=== PATIENT | female | born 1960 | race Hispanic/Latino ===

== ENCOUNTER 2018-06-07 22:28 | Inpatient (IN) | payer MEDICARE ==
--- NOTE | 2018-06-08 00:56 | ED PDOC ---
Syncope/Near Syncope/Dizziness Time Seen by Provider: 06/07/18 22:30 Chief Complaint (Nursing): Dizziness/Lightheaded Chief Complaint (Provider): Dizziness/Lightheaded History Per: Patient History/Exam Limitations: no limitations Onset/Duration Of Symptoms: Hrs Associated Symptoms Preceding Syncopal Episode: Vertigo Additional Complaint(s): Liat Bishop is a 58 year old female with a past medical history of a pituitary tumor, CSF result of brain surgery, blood patch, endometriosis, ENT staph infection, and chronic pain, who is presenting to the ED with complains of vertigo and dizziness onset around 9 am s/p waking up. Patient reports feeling foggy and states that she can't think properly. but no focal weakness or numbness. She denies any fevers, vomiting, or recent illnesses. Neurologist: Dr. Wang Partridge Farmer: Dr. Sloan NIHSS Stroke Scale - Date/Time Evaluation Performed Date Performed: 06/08/18 When Was NIHSS Performed: Baseline - How Severe is the Stroke Level of Consciousness: 0=Alert LOC to Questions: 0=Both comments correct LOC to commands: 0=Obeys both correctly Best Gaze: 0=Normal Visual: 0=No visual loss Facial: 0=Normal Motor Arm - Left: 0=No drift Motor Arm - Right: 0=No drift Motor Leg - Left: 0=No drift Motor Leg - Right: 0=No drift Limb Ataxia: 1=Present Upper or Lower (atxatic gait) Sensory: 0=Normal Best Language: 0=No aphasia Dysarthia: 0=Normal articulation Extinction & Inattention (Neglect): 0=Normal, no object Score: 1 Severity Of Stroke: 1-4 = Minor Stroke Past Medical History Reviewed: Historical Data, Nursing Documentation, Vital Signs Vital Signs: Last Vital Signs Temp 98.6 F 06/07/18 22:43 Pulse 92 H 06/07/18 22:43 Resp 18 06/07/18 22:43 BP 134/70 06/07/18 22:43 Pulse Ox 95 06/07/18 22:43 - Medical History PMH: Chronic Pain Other PMH: Pituitary tumor, ENT staph infection, CSF leak, endometriosis - Surgical History Other surgeries: Laparoscopy and laparotomy - Family History Family History: States: Unknown Family Hx - Social History Current smoker - smoking cessation education provided: Yes (heavy) Alcohol: Social Drugs: Denies - Home Medications Home Medications: Ambulatory Orders Medication Instructions Recorded Albuterol Sulfate [Ventolin Hfa] 2 inh INH Q6 PRN 06/08/18 Alprazolam [Xanax Xr] 1 mg PO Q6 PRN 06/08/18 Omeprazole [Omeprazole] 10 mg PO DAILY 06/08/18 oxyCODONE [oxyCODONE Immediate 15 mg PO Q6 PRN 06/08/18 Release Tab] - Allergies Allergies/Adverse Reactions: Allergies Allergy/AdvReac Type Severity Reaction Status Date / Time No Known Allergies Allergy Verified 06/07/18 22:43 Review of Systems ROS Statement: Except As Marked, All Systems Reviewed And Found Negative Constitutional: Negative for: Fever Gastrointestinal: Negative for: Vomiting Neurological: Positive for: Dizziness (vertigo), Other (foggy, can't think) Physical Exam - Reviewed Nursing Documentation Reviewed: Yes Vital Signs Reviewed: Yes - Physical Exam Appears: Positive for: Non-toxic, No Acute Distress Head Exam: Positive for: ATRAUMATIC, NORMAL INSPECTION, NORMOCEPHALIC Skin: Positive for: Normal Color, Warm, DRY Eye Exam: Positive for: EOMI, Normal appearance, PERRL ENT: Positive for: Normal ENT Inspection Neck: Positive for: Normal, Painless ROM Cardiovascular/Chest: Positive for: Regular Rate, Rhythm. Negative for: Murmur Respiratory: Positive for: Normal Breath Sounds. Negative for: Respiratory Distress Gastrointestinal/Abdominal: Positive for: Normal Exam, Soft. Negative for: Tenderness Back: Positive for: Normal Inspection. Negative for: L CVA Tenderness, R CVA Tenderness, Vertebral Tenderness Extremity: Positive for: Normal ROM. Negative for: Deformity, Swelling Neurologic/Psych: Positive for: Alert, recyclable products sorter II-XII (normal), Oriented, Gait ( ataxic). Negative for: Motor/Sensory Deficits - Laboratory Results Result Diagrams: 06/09/18 05:05 06/09/18 05:05 - ECG O2 Sat by Pulse Oximetry: 95 (RA) Medical Decision Making Medical Decision Making: Time: 23:49 Impression: Dizziness rule out vertigo, rule out intracranial process Plan: --CT head --CMP --CBC CT Head: FINDINGS: Brain: No significant white matter disease. No hemorrhage. Ventricles: Unremarkable. No ventriculomegaly. Bones/joints: Unremarkable. No acute fracture. Soft tissues: No acute findings. Vasculature: Intracranial vascular atherosclerosis. Sinuses, sella turcica: Again, sclerosis, periosteal thickening of the khan of the left sphenoid sinus, probably postsurgical. Postsurgical changes in the roof of the sphenoid sinus/ floor of the sella. Residual soft tissues in the sella turcica, smaller in size when compared to prior study.Within the left sphenoid sinus there is a soft tissue and fatty tissue, which is smaller when compared to prior study, probably postsurgical and/or residual tumor in the left sphenoid sinus. Mastoid air cells: Unremarkable as visualized. No mastoid effusion. IMPRESSION: No acute intracranial findings. Post surgical changes within the sella turcica and within the left sphenoid sinus. Overall, the postsurgical tissue has reduced in size when compared to the previous study. Clinical correlation and followup is recommended as clinically warranted. Patient states that she is feeling dizzy and requires pain medications. Antivert and Percocet ordered as it could be vertigo. 5:[address] Stack regarding admission of patient. Dr. Stack accepts patient for admission and agrees with neurology consult (placed for Dr Lozano, director of aviation) Reevaluation: patient does not see a significant improvement in symptoms after supportive care and medications. Provider called patient's neurologist Dr. Wang just to find out other info about her medical history. no answer. Scribe Attestation: Documented by Quin Flores, acting as a scribe for Bayron Pierson MD. Provider Scribe Attestation: All medical record entries made by the Scribe were at my direction and personally dictated by me. I have reviewed the chart and agree that the record accurately reflects my personal performance of the history, physical exam, medical decision making, and the department course for this patient. I have also personally directed, reviewed, and agree with the discharge instructions and disposition. Disposition - Clinical Impression Clinical Impression: Dizziness - Patient ED Disposition Is Patient to be Admitted: No Counseled Patient/Family Regarding: Studies Performed, Diagnosis, Need For Followup - Disposition Disposition: Routine/Home Disposition Time: 04:30 Condition: STABLE
[2018-06-08 03:43] LABS: BASO # 0.1 K/uL (0.0-0.2); BASO % 1.2 % (0.0-2.0); EOS # 0.3 K/uL (0.0-0.7); EOS % 4.2 % (0.0-4.0); HEMOGLOBIN 13.2 g/dL (12.0-16.0); LYMPH # 1.5 K/uL (1.0-4.3); LYMPH % 22.7 % (20.0-40.0); MEAN CELL VOLUME 98.1 fl (81.0-99.0); MEAN CORPUSCULAR HGB CONC 34.7 g/dL (33.0-37.0); MEAN PLATELET VOLUME 9.3 fl (7.2-11.7); MONO # 0.5 K/uL (0.0-0.8); MONO % 7.4 % (0.0-10.0); NEUT # 4.2 K/uL (1.8-7.0); NEUT % 64.5 % (50.0-75.0); NRBC % 0.2 % (0.0-0.0); RBC 3.88 Mil/uL (3.80-5.20); RED CELL DISTRIBUTION WIDTH 14.1 % (11.5-14.5); WHITE BLOOD COUNT 6.5 K/uL (4.8-10.8)
[2018-06-08 03:47] LABS: ALB/GLOB RATIO 1.2 (1.0-2.1); ALBUMIN 4.2 g/dL (3.5-5.0); ALT/SGPT 26 U/L (9-52); AST/SGOT 41 U/L (14-36); BLOOD UREA NITROGEN 9 mg/dl (7-17); CALCIUM 8.2 mg/dL (8.4-10.2); GFR AFRICAN-AMERICAN > 60; GFR NON-AFRICAN AMERICAN > 60
[2018-06-08] MEDS ORDERED: Oxycodone/Acetaminophen 5/325 mg Tab PO ONE (04:23)
[2018-06-08] MEDS ORDERED: Dextrose 5%/0.45% NS 1,000 ML IV SCH (08:30)
[2018-06-08] MEDS ORDERED: Sodium Chloride 0.9% 50 ML IV ONE (08:35)
[2018-06-08] MEDS ORDERED: Gadodiamide 287 MG/ML VIAL (15ML) IV ONE (08:35)
[2018-06-08] MEDS ORDERED: Pantoprazole 40 mg EC Tab PO ONE (09:46)
--- NOTE | 2018-06-08 10:11 | RAD ---
Date of service: 06/08/2018 PROCEDURE: CHEST RADIOGRAPH, 1 VIEW HISTORY: dizziness COMPARISON: 03/26/2015. FINDINGS: LUNGS: The lungs are well inflated and clear. PLEURA: No pneumothorax or pleural fluid seen. CARDIOVASCULAR: Normal. OSSEOUS STRUCTURES: No significant abnormalities. VISUALIZED UPPER ABDOMEN: Normal. OTHER FINDINGS: None. IMPRESSION: No active pulmonary disease.
[2018-06-08] MEDS: Pantoprazole 40 mg EC Tab PO SCH (10:25)
--- NOTE | 2018-06-08 11:00 | CT ---
Date of service: 06/08/2018 PROCEDURE: CT HEAD WITHOUT CONTRAST. HISTORY: Dizziness. Relevant surgical history: Multiple (3) surgeries for pituitary mass most recent performed 2010. COMPARISON: 03/26/2015 TECHNIQUE: Axial computed tomography images were obtained through the head/brain without intravenous contrast. Coronal and sagittal reconstructed images. Radiation dose: Total exam DLP = 813.79 mGy-cm. This CT exam was performed using one or more of the following dose reduction techniques: Automated exposure control, adjustment of the mA and/or kV according to patient size, and/or use of iterative reconstruction technique. FINDINGS: HEMORRHAGE: No intracranial hemorrhage. BRAIN: No mass effect or edema. No atrophy or chronic microvascular ischemic changes. VENTRICLES: Unremarkable. No hydrocephalus. CALVARIUM: Unremarkable. PARANASAL SINUSES: Unremarkable as visualized. No significant inflammatory changes. MASTOID AIR CELLS: Unremarkable as visualized. No inflammatory changes. OTHER FINDINGS: Postoperative changes within the sella and parasellar regions. Apparent decrease in size of the mass identified within the sella turcica compared to the prior study IMPRESSION: No acute intracranial abnormalities. No significant findings to account for the clinical presentation. Concordant results (preliminary interpretation) provided by [facility]. Procedure Completed: 20:16. Preliminary ([facility]) Report: Dictated and Authenticated: 01:06. Final Interpretation: 10:58.
[2018-06-08] MEDS: Sodium Chloride 0.9% 1,000 ML IV SCH ×2 (11:23→22:56)
--- NOTE | 2018-06-08 12:14 | MRI ---
Date of service: 06/08/2018 PROCEDURE: MRI BRAIN AND PITUITARY WITH AND WITHOUT CONTRAST HISTORY: dizziness, hx pituitary tumor COMPARISON: Noncontrast head CT performed earlier the same day and from 03/26/2015. MRI brain from 05/17/2012 TECHNIQUE: Multiplanar, multisequence MR images of the pituitary glad were obtained, including high resolution sagittal T2 and dynamic, multiphasic contrast coronal T1 weighted images of the sellar turcica. 6 cc Omniscan was injected intravenously. FINDINGS: PITUITARY GLAND: Intravenously. Status post transsphenoidal resection of pituitary neoplasm. The pituitary gland is small in size and has distorted morphology. No residual or recurrent mass abnormal enhancement or signal abnormality. Infundibulum midline. OPTIC CHIASM: Normal in appearance. SUPRASELLAR CISTERN: Normal. CAVERNOUS SINUSES: Normal enhancement BRAIN (LIMITED): There are mild chronic microangiopathic changes. There is no extra-axial fluid collection or territorial infarction. VENTRICLES: Unremarkable. No hydrocephalus.There is mild age-related global parenchymal volume loss and proportionate enlargement of the ventricles and cortical sulci. OTHER FINDINGS: None. IMPRESSION: Status post transsphenoidal resection of a neoplasm, there is started diminutive pituitary gland without evidence for residual or recurrent mass. Mild chronic microangiopathic changes and mild age-related global parenchymal volume loss.
--- NOTE | 2018-06-08 19:06 | CP.PCM.CON ---
History of Present Illness - History of Present Illness History of Present Illness: Neurology Consultation Note: Mrs. Bishop is a 58-year-old woman who is a patient of Dr. Wang with a past medical history of pituitary tumor (s/p transphenoidal resection), CSF leak a/p blood patch, endometriosis, ENT staph infection, and chronic pain, who presented to the ED complaining of vertigo that started Thursday morning. MRI of the brain did not show any concerning acute findings. Labs were basically normal. Vital signs were normal. The patient complains of a chronic headache and states that these episodes of vertigo occur spontaneously and last several minutes. About a week ago, the patient was witnessed having a prolonged staring episode during which her body was "frozen" and she was not responsive. This was witnessed by her who assisted with the history. Review of Systems - Review of Systems All systems: reviewed and no additional remarkable complaints except Past Patient History - Past Medical History & Family History Past Medical History?: Yes - Past Social History Smoking Status: Light Smoker < 10 Cigarettes Daily - PULMONARY Hx Respiratory Disorders: No - NEUROLOGICAL Hx Neurological Disorder: Yes (Pituitary mass with 3 surgeries, CSF leak, mild chronic meningitis) - RENAL Hx Chronic Kidney Disease: No - ENDOCRINE/METABOLIC Hx Endocrine Disorders: No - HEMATOLOGICAL/ONCOLOGICAL Hx Blood Disorders: No - INTEGUMENTARY Hx Dermatological Problems: No - MUSCULOSKELETAL/RHEUMATOLOGICAL Hx Musculoskeletal Disorders: No Hx Falls: Yes Hx Unsteady Gait: Yes - GASTROINTESTINAL Hx Gastrointestinal Disorders: No - GENITOURINARY/GYNECOLOGICAL Hx Genitourinary Disorders: Yes (endometriosis) - PSYCHIATRIC Hx Anxiety: Yes Hx Substance Use: No - SURGICAL HISTORY Hx Surgeries: Yes Other/Comment: laparotomy x4, laparoscopy x4, ectopic , 6 miscarriages - ANESTHESIA Hx Anesthesia: Yes Hx Anesthesia Reactions: No Meds Allergies/Adverse Reactions: Allergies Allergy/AdvReac Type Severity Reaction Status Date / Time No Known Allergies Allergy Verified 06/07/18 22:43 - Medications Medications: Current Medications Sodium Chloride (Sodium Chloride 0.9%) 1,000 mls @ 100 mls/hr IV .Q10H [facility] Last Admin: 06/08/18 11:23 Dose: 100 mls/hr Meclizine HCl (Antivert) 25 mg PO TID [facility] Pantoprazole Sodium (Protonix Ec Tab) 40 mg PO DAILY [facility] Last Admin: 06/08/18 10:25 Dose: 40 mg Scopolamine (Transderm-Scop) 1 patch TD Q3D [facility] Physical Exam - Neurological Exam Neurological exam: Alert, CN II-XII Intact, Normal Gait, Oriented x3, Reflexes Normal Results - Vital Signs Recent Vital Signs: Last Vital Signs Temp 97.7 F 06/08/18 16:49 Pulse 78 06/08/18 16:49 Resp 18 06/08/18 16:40 BP 127/72 06/08/18 16:49 Pulse Ox 95 06/08/18 07:04 - Labs Result Diagrams: 06/08/18 03:10 06/08/18 03:10 Labs: Laboratory Results - last 24 hr 06/08/18 06/08/18 03:10 03:10 WBC 6.5 RBC 3.88 Hgb 13.2 Hct 38.0 MCV 98.1 MCH 34.0 H MCHC 34.7 RDW 14.1 Plt Count 213 MPV 9.3 Neut % (Auto) 64.5 Lymph % (Auto) 22.7 [place] % (Auto) 7.4 Eos % (Auto) 4.2 H Baso % (Auto) 1.2 Neut # (Auto) 4.2 Lymph # (Auto) 1.5 [place] # (Auto) 0.5 Eos # (Auto) 0.3 Baso # (Auto) 0.1 Sodium 137 Potassium 4.2 Chloride 100 Carbon Dioxide 27 Anion Gap 14 BUN 9 Creatinine 0.6 L Est GFR ( Amer) > 60 Est GFR (Non-Af Amer) > 60 Random Glucose 84 Calcium 8.2 L Total Bilirubin 0.6 AST 41 H ALT 26 Alkaline Phosphatase 70 Total Protein 7.7 Albumin 4.2 Globulin 3.5 Albumin/Globulin Ratio 1.2 Assessment & Plan (1) Vertigo Assessment and Plan: Will obtain CTA of the head/neck to rule out any vascular component. Will start Valium 2 mg TID PRN vertigo. Meclizine will be stopped since it is not helping. Status: Acute (2) Complex partial seizure Assessment and Plan: Based on history, the patient may be having seizures. Will start Depakote 500 mg BID and obtain an EEG. The Depakote may also help her headaches. Thank you. Status: Acute
--- NOTE | 2018-06-08 20:43 | HP ---
Copied To: Stuart Stack MD Attending MD: Stuart Stack MD HISTORY OF PRESENT ILLNESS: Ms. Bishop is a 58-year-old female who was admitted via the emergency room because of severe dizziness, feeling confused, and unable to actually wake up from bed. She was brought to the emergency room by her partner who indicates that she became very foggy and very confused, and was not thinking properly, and therefore, he brought her to the emergency room for evaluation and therapy. She has a past medical history of pituitary tumor resection with resultant leakage of CSF fluid and infection in the upper airways and nasal passages with staph. She had received a blood patch in the past. Also, has chronic pain and complains of occasional dizziness and vertigo, but worse on the day of admission. FAMILY HISTORY: Noncontributory. SOCIAL HISTORY: She still smoke cigarettes 1 pack a day. Does not drink and lives at home with her partner. REVIEW OF SYSTEMS: Essentially remarkable for occasional dizziness. She follows up with Dr. Wang, the neurologist, and Dr. Sloan, her trade embalmer. PHYSICAL EXAMINATION GENERAL: The patient is alert and oriented, still very dizzy, but appears slightly improved since being admitted. VITAL SIGNS: Blood pressure 127/70 with a pulse of 82, respiratory rate 18. She is febrile. O2 sat is 95% on room air. She is afebrile with temperature maximum of 99.5 degrees Fahrenheit. SKIN: Shows fair turgor. HEENT: Pupils are equal, reactive to light and accommodation. Mouth fair hygiene. LUNGS: Fair aeration with scattered bilateral rales and mild wheezing. HEART: S1, S2. BREASTS: Normal. ABDOMEN: Soft, nontender. No organomegaly. EXTREMITIES: No edema or cyanosis. CENTRAL NERVOUS SYSTEM: Exam is remarkable for slight unsteadiness of gait, but the patient is alert and oriented x3. LABORATORY DATA: Reviewed. IMPRESSION: Intractable vertigo that is not responding to meclizine therapy and IV fluids. History of brain surgery for pituitary tumor. Clinical chronic obstructive pulmonary disease from cigarette smoking. PLAN: The plan is intravenous hydration, meclizine t.i.d., Neurology evaluation. Further therapy will depend on findings. Stuart Stack MD [facility] # [id number]
[2018-06-08] MEDS: Divalproex 500 mg DR(BID formulation) PO SCH (22:08)
--- NOTE | 2018-06-09 02:23 | CP.PCM.PCO ---
Progress - Re-Evaluation Re-evaluation Note: 06/09/18 02:12 Was called by nurse to evaluate 58 YO F w/ PMH of pituitary tumor and chronic pain and headaches. She was seen by neurology and treated for for complex parial seizure and veritigo. - Complains of a headache and vertigo. Vital signs are stable. Patient is adamant on receiving percocet. States she was previously on Dilaudid and methadone. Gen: NAD CVS:s1s2 heard no m/r/g Resp: CTAB no w/r/r POTATO CHIP FRIER: Cranial nerves intact, AAOx3 A/P Toradol 30 mg IVP : Was given to the patient which relieved her headache. However continues to have dizziness and continues to demand percocet. Have explained to the patient percocet can worsen her dizziness. - Have ordered patient Meclazine 25 mg . Will reassess
[2018-06-09 05:52] LABS: HEMOGLOBIN 12.4 g/dL (12.0-16.0); MEAN CELL VOLUME 100.2 fl (81.0-99.0); MEAN CORPUSCULAR HEMOGLOBIN 33.7 pg (27.0-31.0); MEAN CORPUSCULAR HGB CONC 33.6 g/dL (33.0-37.0); RBC 3.7 Mil/uL (3.80-5.20); WHITE BLOOD COUNT 3.9 K/uL (4.8-10.8)
[2018-06-09 05:55] LABS: ALB/GLOB RATIO 1.2 (1.0-2.1); ALBUMIN 3.5 g/dL (3.5-5.0); ALT/SGPT 30 U/L (9-52); AST/SGOT 36 U/L (14-36); BLOOD UREA NITROGEN 10 mg/dl (7-17); CALCIUM 7.7 mg/dL (8.4-10.2); GFR AFRICAN-AMERICAN > 60; GFR NON-AFRICAN AMERICAN > 60
[2018-06-09 06:08] LABS: T4 5.75 ug/dl (5.5-11.0)
[2018-06-09 06:22] LABS: T3 0.859 nmol/L (1.49-2.60)
[2018-06-09] MEDS: Pantoprazole 40 mg EC Tab PO SCH (08:52)
[2018-06-09] MEDS: Divalproex 500 mg DR(BID formulation) PO SCH ×2 (08:52→16:58)
[2018-06-09] MEDS ORDERED: Magnesium Sulfate 2 gm/50 ml 2 GM/50 ML BAG IV ONE (09:00)
--- NOTE | 2018-06-09 09:36 | CP.PCM.PN ---
Subjective - Date & Time of Evaluation Date of Evaluation: 06/09/18 Time of Evaluation: 09:38 - Subjective Subjective: multiple complaints indicates that she did not get any of her home meds unhappy about treatment in hospital dizziness less today Objective - Vital Signs/Intake and Output Vital Signs (last 24 hours): Temp Pulse Resp BP Pulse Ox 97.9 F 61 18 132/83 95 06/09/18 08:04 06/09/18 08:33 06/09/18 08:04 06/09/18 08:04 06/09/18 08:04 - Medications Medications: Current Medications Alprazolam (Xanax) 1 mg PO TID PRN PRN Reason: Anxiety Diazepam (Valium) 2 mg PO TID [facility] Last Admin: 06/09/18 08:55 Dose: 2 mg Divalproex Sodium (Depakote Dr(*Bid*)) 500 mg PO BID [facility] Last Admin: 06/09/18 08:52 Dose: 500 mg Sodium Chloride (Sodium Chloride 0.9%) 1,000 mls @ 100 mls/hr IV .Q10H [facility] Last Admin: 06/08/18 22:56 Dose: 100 mls/hr Magnesium Sulfate (Magnesium Sulfate 2 Gm/50 Ml Water) 2 gm in 50 mls @ 50 mls/ hr IV ONCE ONE PRN Reason: 2 GM/HR Stop: 06/09/18 09:59 Oxycodone HCl (Oxycodone Immediate Release Tab) 15 mg PO Q6 PRN PRN Reason: Pain, moderate (4-7) Pantoprazole Sodium (Protonix Ec Tab) 40 mg PO DAILY [facility] Last Admin: 06/09/18 08:52 Dose: 40 mg Scopolamine (Transderm-Scop) 1 patch TD Q3D [facility] Last Admin: 06/08/18 22:09 Dose: 1 patch - Labs Labs: 06/09/18 05:05 06/09/18 05:05 - Constitutional Appears: No Acute Distress - Head Exam Head Exam: ATRAUMATIC, NORMAL INSPECTION, NORMOCEPHALIC - Eye Exam Eye Exam: EOMI, Normal appearance, PERRL Pupil Exam: NORMAL ACCOMODATION, PERRL - ENT Exam ENT Exam: Mucous Membranes Moist, Normal Exam - Neck Exam Neck Exam: Full ROM, Normal Inspection. absent: Lymphadenopathy - Respiratory Exam Respiratory Exam: Clear to Ausculation Bilateral, NORMAL BREATHING PATTERN - Cardiovascular Exam Cardiovascular Exam: REGULAR RHYTHM, +S1, +S2. absent: Murmur - GI/Abdominal Exam GI & Abdominal Exam: Soft, Normal Bowel Sounds. absent: Tenderness - Rectal Exam Rectal Exam: NORMAL INSPECTION - Extremities Exam Extremities Exam: Full ROM, Normal Capillary Refill, Normal Inspection. absent : Joint Swelling, Pedal Edema - Back Exam Back Exam: NORMAL INSPECTION - Neurological Exam Neurological Exam: Alert, Awake, CN II-XII Intact, Normal Gait, Oriented x3 - Psychiatric Exam Psychiatric exam: Normal Affect, Normal Mood - Skin Skin Exam: Dry, Intact, Normal Color, Warm Assessment and Plan - Assessment and Plan (Free Text) Assessment: dizziness hx of brain tumor anxiety ?seizures Plan: pt to speak with head nurse meds reconciled eeg pending physical therapy discharge in am if stable
--- NOTE | 2018-06-09 10:14 | CP.PCM.PN ---
Subjective - Date & Time of Evaluation Date of Evaluation: 06/09/18 Time of Evaluation: 10:07 - Subjective Subjective: Ms. Bishop was seen and examined at the bedside. She is alert, oriented, claims of experiencing bilateral frontal headache, non-radiating. She further claims of experiencing withdrawal symptoms from prolong used of pain medications and benzo. She did not have and blank staring during the assessment. She is tolerating IVF and PO intake.There was no untoward events overnight. Objective - Vital Signs/Intake and Output Vital Signs (last 24 hours): Temp Pulse Resp BP Pulse Ox 97.9 F 61 18 132/83 95 06/09/18 08:04 06/09/18 08:33 06/09/18 08:04 06/09/18 08:04 06/09/18 08:04 - Medications Medications: Current Medications Alprazolam (Xanax) 1 mg PO TID PRN PRN Reason: Anxiety Diazepam (Valium) 2 mg PO TID [facility] Last Admin: 06/09/18 08:55 Dose: 2 mg Divalproex Sodium (Depakote Dr(*Bid*)) 500 mg PO BID [facility] Last Admin: 06/09/18 08:52 Dose: 500 mg Sodium Chloride (Sodium Chloride 0.9%) 1,000 mls @ 100 mls/hr IV .Q10H [facility] Last Admin: 06/08/18 22:56 Dose: 100 mls/hr Oxycodone HCl (Oxycodone Immediate Release Tab) 15 mg PO Q6 PRN PRN Reason: Pain, moderate (4-7) Pantoprazole Sodium (Protonix Ec Tab) 40 mg PO DAILY [facility] Last Admin: 06/09/18 08:52 Dose: 40 mg Scopolamine (Transderm-Scop) 1 patch TD Q3D [facility] Last Admin: 06/08/18 22:09 Dose: 1 patch - Labs Labs: 06/09/18 05:05 06/09/18 05:05 - Constitutional Appears: No Acute Distress - Head Exam Head Exam: NORMAL INSPECTION - Eye Exam Pupil Exam: PERRL - Neurological Exam Neurological Exam: Alert, Awake, Oriented x3 Neuro motor strength exam: Left Upper Extremity: 4, Right Upper Extremity: 4, Left Lower Extremity: 4, Right Lower Extremity: 4 Additional comments: alert, awake, follows commands, able to feed herself, sensation is intact. Assessment and Plan (1) Vertigo Assessment & Plan: Continue current medical regimen. Pending CTA of the head and neck, if its normal, recommend vestibular rehab. Status: Acute (2) Complex partial seizure Assessment & Plan: Continue all current medical regimen including AED. Pending EEG. Recommend to treat any electrolyte abnormalities. Status: Acute
[2018-06-09] MEDS: oxyCODONE 5 mg Immediate Release Tab PO PRN (11:51)
[2018-06-09] MEDS: Sodium Chloride 0.9% 1,000 ML IV SCH (21:47)
[2018-06-10] MEDS: oxyCODONE 5 mg Immediate Release Tab PO PRN (02:37)
--- NOTE | 2018-06-10 08:28 | CP.PCM.PN ---
Subjective - Date & Time of Evaluation Date of Evaluation: 06/10/18 Time of Evaluation: 08:28 - Subjective Subjective: Ms. Bishop was seen and examined at the bedside. She is alert, oriented, denies any blurred vision, but claims of experiencing dizziness in a supine position. She further states of participating with physical therapy yesterday.She is tolerating PO intake. With unsuccessful attempts to insert a larger angocath for the CTA, patient refused further attempts, still undecided regarding PICC line insertion.There was no untoward events overnight. Objective - Vital Signs/Intake and Output Vital Signs (last 24 hours): Temp Pulse Resp BP Pulse Ox 97.9 F 54 L 18 121/71 99 06/10/18 08:20 06/10/18 08:20 06/10/18 08:20 06/10/18 08:20 06/10/18 08:20 - Medications Medications: Current Medications Alprazolam (Xanax) 1 mg PO TID PRN PRN Reason: Anxiety Diazepam (Valium) 2 mg PO TID [facility] Last Admin: 06/09/18 16:57 Dose: 2 mg Divalproex Sodium (Depakote Dr(*Bid*)) 500 mg PO BID [facility] Last Admin: 06/09/18 16:58 Dose: 500 mg Sodium Chloride (Sodium Chloride 0.9%) 1,000 mls @ 100 mls/hr IV .Q10H [facility] Last Admin: 06/09/18 21:47 Dose: 100 mls/hr Oxycodone HCl (Oxycodone Immediate Release Tab) 15 mg PO Q6 PRN PRN Reason: Pain, moderate (4-7) Last Admin: 06/10/18 02:37 Dose: 15 mg Pantoprazole Sodium (Protonix Ec Tab) 40 mg PO DAILY [facility] Last Admin: 06/09/18 08:52 Dose: 40 mg Scopolamine (Transderm-Scop) 1 patch TD Q3D [facility] Last Admin: 06/08/18 22:09 Dose: 1 patch - Labs Labs: 06/09/18 05:05 06/09/18 05:05 - Constitutional Appears: No Acute Distress - Head Exam Head Exam: NORMAL INSPECTION - Eye Exam Additional comments: no diplopia, blurred vision, or lazy eyes with peripheral eye movement. - Neurological Exam Neurological Exam: Alert, Awake, Oriented x3 Neuro motor strength exam: Left Upper Extremity: 4, Right Upper Extremity: 4, Left Lower Extremity: 4, Right Lower Extremity: 4 Additional comments: neurological unchanged from previous examination, Assessment and Plan (1) Vertigo Assessment & Plan: Continue current medical regimen. Pending CTA of the head and neck, if PICC line is not possible, recommend MRA of the head and neck without contrast. Of its normal, recommend vestibular rehab. Status: Acute (2) Complex partial seizure Assessment & Plan: Continue all current medical regimen including AED. Pending EEG. Recommend to treat any electrolyte abnormalities. Status: Acute
--- NOTE | 2018-06-10 09:09 | CP.PCM.PN ---
Subjective - Date & Time of Evaluation Date of Evaluation: 06/10/18 Time of Evaluation: 09:10 - Subjective Subjective: DIZZINESS IMPROVED ABLE TO AMBULATE TO BATHROOM LESS APPREHENSIVE TODAY Objective - Vital Signs/Intake and Output Vital Signs (last 24 hours): Temp Pulse Resp BP Pulse Ox 97.9 F 54 L 18 121/71 99 06/10/18 08:20 06/10/18 08:20 06/10/18 08:20 06/10/18 08:20 06/10/18 08:20 - Medications Medications: Current Medications Alprazolam (Xanax) 1 mg PO TID PRN PRN Reason: Anxiety Diazepam (Valium) 2 mg PO TID [facility] Last Admin: 06/09/18 16:57 Dose: 2 mg Divalproex Sodium (Depakote Dr(*Bid*)) 500 mg PO BID [facility] Last Admin: 06/09/18 16:58 Dose: 500 mg Sodium Chloride (Sodium Chloride 0.9%) 1,000 mls @ 100 mls/hr IV .Q10H [facility] Last Admin: 06/09/18 21:47 Dose: 100 mls/hr Oxycodone HCl (Oxycodone Immediate Release Tab) 15 mg PO Q6 PRN PRN Reason: Pain, moderate (4-7) Last Admin: 06/10/18 02:37 Dose: 15 mg Pantoprazole Sodium (Protonix Ec Tab) 40 mg PO DAILY [facility] Last Admin: 06/09/18 08:52 Dose: 40 mg Scopolamine (Transderm-Scop) 1 patch TD Q3D [facility] Last Admin: 06/08/18 22:09 Dose: 1 patch - Labs Labs: 06/09/18 05:05 06/09/18 05:05 - Constitutional Appears: No Acute Distress - Head Exam Head Exam: ATRAUMATIC, NORMAL INSPECTION, NORMOCEPHALIC - Eye Exam Eye Exam: EOMI, Normal appearance, PERRL Pupil Exam: NORMAL ACCOMODATION, PERRL - ENT Exam ENT Exam: Mucous Membranes Moist, Normal Exam - Neck Exam Neck Exam: Full ROM, Normal Inspection. absent: Lymphadenopathy - Respiratory Exam Respiratory Exam: Clear to Ausculation Bilateral, NORMAL BREATHING PATTERN - Cardiovascular Exam Cardiovascular Exam: REGULAR RHYTHM, +S1, +S2. absent: Murmur - GI/Abdominal Exam GI & Abdominal Exam: Soft, Normal Bowel Sounds. absent: Tenderness - Rectal Exam Rectal Exam: NORMAL INSPECTION - Extremities Exam Extremities Exam: Full ROM, Normal Capillary Refill, Normal Inspection. absent : Joint Swelling, Pedal Edema - Back Exam Back Exam: NORMAL INSPECTION - Neurological Exam Neurological Exam: Alert, Awake, CN II-XII Intact, Normal Gait, Oriented x3 - Psychiatric Exam Psychiatric exam: Normal Affect, Normal Mood - Skin Skin Exam: Dry, Intact, Normal Color, Warm Assessment and Plan - Assessment and Plan (Free Text) Assessment: DIZZINESS---?SEIZURES/MED EFFECT HX OF BRAIN TUMOR ANXIETY Plan: AWAIT EEG AND MRA RESULTS CASE DISCUSSED WITH NEUROLOGY---WILL PROBABLY D/C TODAY AND HAVE PT FOLLOW UP WITH HER PRIVATE NEUROLOGIST
[2018-06-10] MEDS: Pantoprazole 40 mg EC Tab PO SCH (09:42)
[2018-06-10] MEDS: Divalproex 500 mg DR(BID formulation) PO SCH ×2 (09:42→17:41)
[2018-06-10] MEDS: Sodium Chloride 0.9% 1,000 ML IV SCH (17:45)
[2018-06-11 00:31] VITALS: RESP 18
[2018-06-11] MEDS: oxyCODONE 5 mg Immediate Release Tab PO PRN (00:31)
[2018-06-11 08:21] VITALS: O2SAT 98
[2018-06-11] MEDS: Pantoprazole 40 mg EC Tab PO SCH (08:21)
[2018-06-11] MEDS: Divalproex 500 mg DR(BID formulation) PO SCH (08:21)
--- NOTE | 2018-06-11 09:04 | CP.PCM.PN ---
Subjective - Date & Time of Evaluation Date of Evaluation: 06/11/18 Time of Evaluation: 09:04 - Subjective Subjective: Ms. Bishop was seen and examined at the bedside. She is alert, oriented, denies any blurred vision, but claims of experiencing dizziness in a supine position. She further states of experiencing insomia/ headache last night which oxycodone 15 mg PO was given. MRA of the head and neck done.There was no untoward events overnight. Objective - Vital Signs/Intake and Output Vital Signs (last 24 hours): Temp Pulse Resp BP Pulse Ox 98.3 F 55 L 18 135/73 98 06/11/18 08:20 06/11/18 08:20 06/11/18 08:20 06/11/18 08:20 06/11/18 08:20 - Medications Medications: Current Medications Alprazolam (Xanax) 1 mg PO TID PRN PRN Reason: Anxiety Diazepam (Valium) 2 mg PO TID [facility] Last Admin: 06/11/18 08:21 Dose: 2 mg Divalproex Sodium (Depakote Dr(*Bid*)) 500 mg PO BID [facility] Last Admin: 06/11/18 08:21 Dose: 500 mg Sodium Chloride (Sodium Chloride 0.9%) 1,000 mls @ 100 mls/hr IV .Q10H [facility] Last Admin: 06/10/18 17:45 Dose: Not Given Oxycodone HCl (Oxycodone Immediate Release Tab) 15 mg PO Q6 PRN PRN Reason: Pain, moderate (4-7) Last Admin: 06/11/18 00:31 Dose: 15 mg Pantoprazole Sodium (Protonix Ec Tab) 40 mg PO DAILY [facility] Last Admin: 06/11/18 08:21 Dose: 40 mg Scopolamine (Transderm-Scop) 1 patch TD Q3D [facility] Last Admin: 06/08/18 22:09 Dose: 1 patch - Labs Labs: 06/09/18 05:05 06/09/18 05:05 - Constitutional Appears: No Acute Distress - Head Exam Head Exam: NORMAL INSPECTION - Eye Exam Pupil Exam: PERRL - Neurological Exam Neurological Exam: Alert, Awake, Oriented x3 Neuro motor strength exam: Left Upper Extremity: 4, Right Upper Extremity: 4, Left Lower Extremity: 4, Right Lower Extremity: 4 Additional comments: neurological examination unchanged from previous examination. Assessment and Plan (1) Vertigo Assessment & Plan: Continue current medical regimen. Pending MRA of the head and neck without contrast. if its normal, may discharge to home and recommend vestibular rehab. as an outpatient. Status: Acute (2) Complex partial seizure Assessment & Plan: Continue all current medical regimen including AED. Pending EEG. Recommend to treat any electrolyte abnormalities. Status: Acute
--- NOTE | 2018-06-11 09:50 | MRI ---
Date of service: 06/10/2018 PROCEDURE: Magnetic Resonance Angiography Brain HISTORY: vertigo COMPARISON: None available. TECHNIQUE: 3D time of flight MR angiography of the intracranial arteries was performed. Rotating maximum intensity projection images were generated. FINDINGS: INTERNAL CAROTID ARTERIES: Unremarkable. The skull base, petrous, cavernous and supraclinoid segments are bilaterally widely patient. ANTERIOR CEREBRAL ARTERIES: Unremarkable. A1 and A2 segments are widely patent. Smaller distal branches unremarkable, as visualized. MIDDLE CEREBRAL ARTERIES: Unremarkable. M1 and M2 segments are widely patent. Perisylvian branches grossly symmetric. POSTERIOR CIRCULATION: Basilar Artery: Unremarkable. Distal Vertebral Arteries: Unremarkable. 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 There is a small right posterior communicating artery and a robust left posterior communicating artery. Posterior Inferior Cerebellar Arteries: Unremarkable. ANEURYSM/ VASCULAR MALFORMATIONS: None. OTHER FINDINGS: None. 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
--- NOTE | 2018-06-11 09:52 | MRI ---
Date of service: 06/10/2018 PROCEDURE: MR Angiography of the neck without contrast HISTORY: vertigo COMPARISON: None available. TECHNIQUE: 3D [id number] angiography of the neck was performed. Rotating maximum intensity projection images of the cervical carotid and vertebral arteries were generated. The origins of the common carotid arteries were not visualized, which is a limitation inherent to the non-contrast time of flight technique. FINDINGS: RIGHT CAROTID ARTERIES: Common Carotid Artery: Normal. Carotid Bifurcation: Normal. Internal Carotid Artery:Normal. External Carotid Artery (proximal branches): Normal. LEFT CAROTID ARTERIES: Common Carotid Artery: Normal. Carotid Bifurcation: Limited atherosclerotic changes without significant stenosis. Internal Carotid Artery:Normal. External Carotid Artery (proximal branches): Normal. VERTEBRAL ARTERIES: Right Vertebral Artery: Normal. Left Vertebral Artery: Normal. OTHER FINDINGS: None. IMPRESSION: Limited left carotid bulbar atherosclerosis without significant stenosis resulting. Widely patent bilateral common and internal carotid arteries as imaged.
[2018-06-11 12:30] VITALS: BP 113/73; PULSE 56; TEMP 98.7
--- NOTE | 2018-06-11 13:06 | CP.PCM.DIS ---
Provider - Provider Date of Admission: 06/08/18 04:26 Attending physician: Stuart Stack MD Time Spent in preparation of Discharge (in minutes): 35 Diagnosis - Discharge Diagnosis (1) History of pituitary tumor Status: Acute (2) Complex partial seizure Status: Acute (3) Dizziness Status: Acute (4) Vertigo Status: Acute Hospital Course - Lab Results Lab Results: Micro Results 06/08/18 09:36 Blood-Venous Blood Culture - Preliminary NO GROWTH AFTER 3 DAYS 06/08/18 09:51 Blood-Venous Blood Culture - Preliminary NO GROWTH AFTER 3 DAYS Most Recent Lab Values WBC 3.9 K/uL (4.8-10.8) L 06/09/18 05:05 RBC 3.70 Mil/uL (3.80-5.20) L 06/09/18 05:05 Hgb 12.4 g/dL (12.0-16.0) 06/09/18 05:05 Hct 37.0 % (34.0-47.0) 06/09/18 05:05 MCV 100.2 fl (81.0-99.0) H D 06/09/18 05:05 MCH 33.7 pg (27.0-31.0) H 06/09/18 05:05 MCHC 33.6 g/dL (33.0-37.0) 06/09/18 05:05 RDW 14.0 % (11.5-14.5) 06/09/18 05:05 Plt Count 175 K/uL (130-400) 06/09/18 05:05 MPV 9.3 fl (7.2-11.7) 06/08/18 03:10 Neut % (Auto) 64.5 % (50.0-75.0) 06/08/18 03:10 Lymph % (Auto) 22.7 % (20.0-40.0) 06/08/18 03:10 [place] % (Auto) 7.4 % (0.0-10.0) 06/08/18 03:10 Eos % (Auto) 4.2 % (0.0-4.0) H 06/08/18 03:10 Baso % (Auto) 1.2 % (0.0-2.0) 06/08/18 03:10 Neut # (Auto) 4.2 K/uL (1.8-7.0) 06/08/18 03:10 Lymph # (Auto) 1.5 K/uL (1.0-4.3) 06/08/18 03:10 [place] # (Auto) 0.5 K/uL (0.0-0.8) 06/08/18 03:10 Eos # (Auto) 0.3 K/uL (0.0-0.7) 06/08/18 03:10 Baso # (Auto) 0.1 K/uL (0.0-0.2) 06/08/18 03:10 Sodium 134 mmol/l (132-148) 06/09/18 05:05 Potassium 3.9 MMOL/L (3.6-5.0) 06/09/18 05:05 Chloride 97 mmol/L (98-107) L 06/09/18 05:05 Carbon Dioxide 28 mmol/L (22-30) 06/09/18 05:05 Anion Gap 13 (10-20) 06/09/18 05:05 BUN 10 mg/dl (7-17) 06/09/18 05:05 Creatinine 0.6 mg/dl (0.7-1.2) L 06/09/18 05:05 Est GFR ( Amer) > 60 06/09/18 05:05 Est GFR (Non-Af Amer) > 60 06/09/18 05:05 Random Glucose 85 mg/dL (65-105) 06/09/18 05:05 Calcium 7.7 mg/dL (8.4-10.2) L 06/09/18 05:05 Phosphorus 3.7 mg/dl (2.5-4.5) 06/09/18 05:05 Magnesium 1.8 MG/DL (1.6-2.3) 06/09/18 05:05 Total Bilirubin 0.3 mg/dl (0.2-1.3) 06/09/18 05:05 AST 36 U/L (14-36) 06/09/18 05:05 ALT 30 U/L (9-52) 06/09/18 05:05 Alkaline Phosphatase 58 U/L (38-126) 06/09/18 05:05 Total Protein 6.5 G/DL (6.3-8.2) 06/09/18 05:05 Albumin 3.5 g/dL (3.5-5.0) 06/09/18 05:05 Globulin 3.0 gm/dL (2.2-3.9) 06/09/18 05:05 Albumin/Globulin Ratio 1.2 (1.0-2.1) 06/09/18 05:05 Thyroxine (T4) 5.75 ug/dl (5.5-11.0) 06/09/18 05:05 Total T3 0.859 nmol/L (1.49-2.60) L 06/09/18 05:05 TSH 3rd Generation 5.75 mIU/ML (0.46-4.68) H 06/09/18 05:05 - Hospital Course Hospital Course: dizziness less all neurology workup non-revealing Discharge Exam - Head Exam Head Exam: NORMAL INSPECTION - Eye Exam Eye Exam: EOMI, Normal appearance, PERRL Pupil Exam: NORMAL ACCOMODATION, PERRL - GI/Abdominal Exam GI & Abdominal Exam: Normal Bowel Sounds - Rectal Exam Rectal Exam: NORMAL INSPECTION - Neurological Exam Neurological exam: Alert, CN II-XII Intact, Oriented x3, Reflexes Normal - Psychiatric Exam Psychiatric exam: Normal Affect, Normal Mood - Skin Skin Exam: Dry, Intact, Normal Color, Warm Discharge Plan - Follow Up Plan Condition: STABLE Disposition: HOME/ ROUTINE Patient education suggested?: Yes Instructions: Vertigo (a Type of Dizziness) (DC) Referrals: Norman Wang MD [Staff Provider] - Aquiles Lozano MD [Medical Doctor] - Stuart Stack MD [Staff Provider] -
== END 2018-06-11 16:15 | disposition home or self-care (01) | DRG 101 ==
LOC: H.ER 22:28 → H.ERHOLD 06-08 04:26 → OBSVTOIN 06-08 04:26 → H.TEL 06-08 16:20 → INTOOBSV 06-10 04:26 → OBSVTOIN 06-10 04:26
PROVIDERS: ADMIT Internal Medicine Pulmonary Disease; ATTEND Internal Medicine Pulmonary Disease
DX: G40.209 Localization-related (focal) (partial) symptomatic epilepsy and epileptic syndromes with complex partial seizures, not intractable, without status epilepticus (principal); G89.29 Other chronic pain; F17.210 Nicotine dependence, cigarettes, uncomplicated; J44.9 Chronic obstructive pulmonary disease, unspecified; F41.9 Anxiety disorder, unspecified; R42 Dizziness and giddiness; R51 Headache

== ENCOUNTER 2018-12-07 15:18 | Emergency (ER) | payer MEDICARE ==
[2018-12-07 15:28] VITALS: BP 149/77; PULSE 92; RESP 16; TEMP 97.7; O2SAT 99
--- NOTE | 2018-12-07 16:58 | ED PDOC ---
HPI: Trauma/Fall - HPI Time Seen by Provider: 12/07/18 15:38 Chief Complaint (Nursing): Eye Problem Chief Complaint (Provider): s/p Fall History Per: Patient, Family () History/Exam Limitations: no limitations Onset/Duration Of Symptoms: Hrs (since 0023 this morning) Additional Complaint(s): 58 year old female presents to the ED for evaluation s/p bending forward this morning around 0023 to grab something on her night stand and falling. She reports striking the left side of her face on an iron stool nearby but reports no loss of consciousness, confirmed by her who states he went to her immediately to find her awake and fully conscious. After noticing bruising and swelling to her left eye area, she came in for evaluation, also complaining of left shoulder pain. Of note, patient says she had a procedure to her sinuses yesterday at an ENT office. Denies visual changes. PMD: [place] BRIS[place] Past Medical History Reviewed: Historical Data, Nursing Documentation, Vital Signs Vital Signs: Last Vital Signs Temp 97.7 F 12/07/18 15:24 Pulse 92 H 12/07/18 15:24 Resp 16 12/07/18 15:24 BP 149/77 12/07/18 15:24 Pulse Ox 99 12/07/18 15:24 - Medical History PMH: Anxiety, Chronic Pain Denies: Chronic Kidney Disease Other PMH: endometriosis; Pituitary mass with 3 surgeries, CSF leak, mild chronic - Surgical History Other surgeries: sinus procedure; laparotomy x4, laparoscopy x4, ectopic , 6 miscarriages - Family History Family History: States: Unknown Family Hx - Social History Current smoker - smoking cessation education provided: Yes (light) Alcohol: None Drugs: Denies - Home Medications Home Medications: Ambulatory Orders Medication Instructions Recorded RX: Albuterol Sulfate [Ventolin 2 inh INH Q6 PRN 06/08/18 Hfa] RX: Alprazolam [Xanax Xr] 1 mg PO Q6 PRN 06/08/18 RX: Omeprazole 10 mg PO DAILY 06/08/18 RX: oxyCODONE [oxyCODONE Immediate 15 mg PO Q6 PRN 06/08/18 Release Tab] RX: Divalproex [Depakote DR(*BID*)] 500 mg PO BID #60 tcp 06/11/18 - Allergies Allergies/Adverse Reactions: Allergies Allergy/AdvReac Type Severity Reaction Status Date / Time amphotericin B Allergy ANGIOEDEMA Verified 12/07/18 15:23 Review of Systems ROS Statement: Except As Marked, All Systems Reviewed And Found Negative Eyes: Positive for: Other (swelling and bruising around left eye). Negative for: Vision Change Musculoskeletal: Positive for: Shoulder Pain (left) Neurological: Negative for: Other (loss of consciousness) Physical Exam - Reviewed Nursing Documentation Reviewed: Yes Vital Signs Reviewed: Yes - Physical Exam Appears: Positive for: No Acute Distress Head Exam: Positive for: ATRAUMATIC, NORMAL INSPECTION, NORMOCEPHALIC Eye Exam: Positive for: EOMI, PERRL, Periorbital swelling (and ecchymosis to left side). Negative for: Conjunctival injection (bilaterally), Other (hyphema) ENT: Positive for: Normal ENT Inspection Neck: Positive for: Normal, Painless ROM (no c-spine tenderness), Supple Cardiovascular/Chest: Positive for: Regular Rate, Rhythm Respiratory: Positive for: Normal Breath Sounds. Negative for: Respiratory Distress Pulses-Radial (L): 2+ Pulses-Radial (R): 2+ Gastrointestinal/Abdominal: Positive for: Normal Exam, Soft. Negative for: Tenderness Extremity: Positive for: Tenderness (minimal left lateral shoulder tenderness without deformity) Neurologic/Psych: Positive for: Alert, Oriented (x3), Gait (steady, unassisted). Negative for: Aphasia, Facial Droop - ECG O2 Sat by Pulse Oximetry: 99 (RA) Pulse Ox Interpretation: Normal - Progress Condition: Re-examined, Improved Medical Decision Making Medical Decision Making: Time: 1550 Initial Impression: s/p fall Initial Plan: --CT Head without contrast --CT Maxillofacial --Ultram 50mg PO --Zofran 4mg PO --XR left shoulder [address] FINDINGS: HEMORRHAGE: No intracranial hemorrhage. BRAIN: Normal amezcua-white matter differentiation and density are appreciated throughout the cerebrum and cerebellum with the brainstem appearing unremarkable as well. There is no mass effect. There is no suspicious extra-axial fluid collection and the midline brain anatomy appears diffusely unremarkable. VENTRICLES: Unremarkable. No hydrocephalus. CALVARIUM: No destructive bony lesion or displaced fracture identified including through the skullbase. PARANASAL SINUSES: Chronic left maxillary sinus disease again evident. MASTOID AIR CELLS: Unremarkable as visualized. No inflammatory changes. OTHER FINDINGS: None. IMPRESSION: Stable unremarkable unenhanced head CT [address] FINDINGS: NASAL BONES: Pre-existing perforation of cartilaginous septum with bony septum intact though deviated toward the left. ORBITS: No fracture bilaterally. Prominent preseptal periorbital soft tissue edema appreciated. PARANASAL SINUSES/ MASTOIDS: Postoperative changes inferior medial left sphenoid sinus with chronic sinus disease appreciated internally. MAXILLA: Unremarkable. MANDIBLE/ TEMPOROMANDIBULAR JOINTS: Unremarkable. SKULL BASE: Unremarkable. TEMPORAL BONES: Middle ears and mastoid grossly unremarkable. OTHER FINDINGS: None. IMPRESSION: No facial fracture identified. Prominent left preseptal edematous changes appreciated. No postseptal involvement. Orbital fracture appreciable. Incidental postoperative changes left sphenoid sinus. Perforation of cartilaginous nasal septum inferiorly. Leftward bony nasal septal deviation ----- Scribe Attestation: Documented by Tiffany Salazar, acting as a scribe for Thor Floyd PA-C. Provider Scribe Attestation: All medical record entries made by the Scribe were at my direction and personally dictated by me. I have reviewed the chart and agree that the record accurately reflects my personal performance of the history, physical exam, medical decision making, and the department course for this patient. I have also personally directed, reviewed, and agree with the discharge instructions and disposition. Disposition - Clinical Impression Clinical Impression: Facial contusion, Head injury consultation - Patient ED Disposition Is Patient to be Admitted: No - Disposition Disposition: Routine/Home Disposition Time: 17:28 Condition: STABLE Additional Instructions: FOLLOW UP WITH YOUR DOCTOR FOR FURTHER EVALUATION RETURN TO ED IMMEDIATELY IF SYMPTOMS WORSEN [facility] [facility], thank you for letting us take care of you today. Your provider was Hernán Ly MD and you were treated for FALL: LEFT EYE INJURY. The emergency medical care you received today was directed at your acute symptoms. If you were prescribed any medication, please fill it and take as directed. It may take several days for your symptoms to resolve. Return to the Emergency Department if your symptoms worsen, do not improve, or if you have any other problems. Please contact your doctor or call one of the physicians/clinics you have been referred to that are listed on the Patient Visit Information form that is included in your discharge packet. Bring any paperwork you were given at discharge with you along with any medications you are taking to your follow up visit. Our treatment cannot replace ongoing medical care by a primary care provider outside of the emergency department. Thank you for allowing the [facility] team to be part of your care today. If you had an X-Ray or CT scan: A Radiologist will review the ED reading if any change in treatment is needed we will contact you. If you had a blood, urine, or wound culture: It will take several days for the results, if any change in treatment is needed we will contact you. If you had an STI test: It will take 48 hours for the results. Please call after 1 week if you have not heard back. Instructions: Closed Head Injury (DC), Contusion (DC) Forms: [employer] (Mongolian) Print Language: OMANI
--- NOTE | 2018-12-07 17:20 | CT ---
Date of service: 12/07/2018 PROCEDURE: CT HEAD WITHOUT CONTRAST. HISTORY: trauma COMPARISON: Noncontrast head CT 06/08/2018. TECHNIQUE: Axial computed tomography images were obtained through the head/brain without intravenous contrast. Radiation dose: Total exam DLP = 1627.36 mGy-cm. This CT exam was performed using one or more of the following dose reduction techniques: Automated exposure control, adjustment of the mA and/or kV according to patient size, and/or use of iterative reconstruction technique. FINDINGS: HEMORRHAGE: No intracranial hemorrhage. BRAIN: Normal amezcua-white matter differentiation and density are appreciated throughout the cerebrum and cerebellum with the brainstem appearing unremarkable as well. There is no mass effect. There is no suspicious extra-axial fluid collection and the midline brain anatomy appears diffusely unremarkable. VENTRICLES: Unremarkable. No hydrocephalus. CALVARIUM: No destructive bony lesion or displaced fracture identified including through the skullbase. PARANASAL SINUSES: Chronic left maxillary sinus disease again evident. MASTOID AIR CELLS: Unremarkable as visualized. No inflammatory changes. OTHER FINDINGS: None. IMPRESSION: Stable unremarkable unenhanced head CT 12/07/2018.
--- NOTE | 2018-12-07 17:23 | CT ---
Date of service: 12/07/2018 PROCEDURE: CT MAXILLOFACIAL BONES WITHOUT CONTRAST HISTORY: trauma COMPARISON: None available. TECHNIQUE: Contiguous axial CT images of the maxillofacial bones were obtained. Coronal and sagittal reformats were generated. Radiation dose: Total exam DLP = 1627.36 mGy-cm. This CT exam was performed using one or more of the following dose reduction techniques: Automated exposure control, adjustment of the mA and/or kV according to patient size, and/or use of iterative reconstruction technique. FINDINGS: NASAL BONES: Pre-existing perforation of cartilaginous septum with bony septum intact though deviated toward the left. ORBITS: No fracture bilaterally. Prominent preseptal periorbital soft tissue edema appreciated. PARANASAL SINUSES/ MASTOIDS: Postoperative changes inferior medial left sphenoid sinus with chronic sinus disease appreciated internally. MAXILLA: Unremarkable. MANDIBLE/ TEMPOROMANDIBULAR JOINTS: Unremarkable. SKULL BASE: Unremarkable. TEMPORAL BONES: Middle ears and mastoid grossly unremarkable. OTHER FINDINGS: None. IMPRESSION: No facial fracture identified. Prominent left preseptal edematous changes appreciated. No postseptal involvement. Orbital fracture appreciable. Incidental postoperative changes left sphenoid sinus. Perforation of cartilaginous nasal septum inferiorly. Leftward bony nasal septal deviation
--- NOTE | 2018-12-07 17:57 | RAD ---
Date of service: 12/07/2018 PROCEDURE: Radiographs of the left shoulder joint HISTORY: trauma COMPARISON: No prior. FINDINGS: BONES: Bone alignment is normal. There is diffuse bone demineralization. There is no acute displaced fracture or bone destruction. 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 The acromioclavicular joint is normal. SOFT TISSUES: Normal. OTHER FINDINGS: None. IMPRESSION: No acute displaced fracture or dislocation.
== END 2018-12-07 17:33 | disposition home or self-care (01) ==
LOC: H.ER 15:18
DX: S00.83XA Contusion of other part of head, initial encounter (principal); S09.90XA Unspecified injury of head, initial encounter; F17.200 Nicotine dependence, unspecified, uncomplicated; G89.29 Other chronic pain